=== PATIENT | female | born 1965 | race African-American/Black ===

== ENCOUNTER 2019-05-14 09:24 | Emergency (ER) | payer MEDICARE, MEDICAID, SELFPAY ==
--- NOTE | ~2019-05-14 | XR_ITS ---
XR chest 2V DATE: 05/14/2019 09:54 INDICATION: Productive cough for one week TECHNIQUE: PA and lateral views COMPARISON: 12/07/2008 two-view chest FINDINGS: Status post mid and lower anterior cervical spine surgical fusion. Normal heart size. No hilar or mediastinal enlargement. No pulmonary infiltrate or consolidation, pleural effusion or pulmonary vascular congestion or pneumo thorax. Surgical clips, medial left upper quadrant of abdomen. Included skeletal structures are unremarkable, other than mild degenerative spurring of the thoracic spine. IMPRESSION: No active cardiopulmonary disease Status post surgical spinal surgical fusion Postoperative change of the left upper quadrant of the abdomen Reviewed, dictated and finalized at location B. R WOOD CUTTER
[2019-05-14 09:43] VITALS: BP 145/79; PULSE 84; RESP 22; TEMP 36.7; O2SAT 100
--- NOTE | 2019-05-14 10:06 | ED.URI ---
HPI - URI/Sore Throat General Chief Complaint: Upper Respiratory Infection Stated Complaint: Productive Cough Time Seen by Provider: 05/14/19 09:40 Source: patient Mode of arrival: ambulatory Limitations: no limitations History of Present Illness HPI Narrative: Patient presents with chief complaint of 3 days of cough, congestion. Patient states she has had slightly decreased appetite, but she has been able to eat and drink. Patient states she did not receive a flu shot this year. Patient states that her cough has been productive of light yellow and clear phlegm. Patient denies fever, nausea, vomiting, diarrhea or any other symptoms. Patient states that she does smoke cigarettes but she has been trying to stop. Patient denies chest pain or dyspnea. Related Data Allergies Allergy/AdvReac Type Severity Reaction Status Date / Time NSAIDS (Non-Steroidal AdvReac Other Verified 05/14/19 09:45 Anti-Inflamma Review of Systems Review of Systems: Narrative: CONSTITUTIONAL: Denies fever, chills, or sweats. EYES: Denies visual changes, redness, or discharge. ENT: Reports rhinorrhea, congestion, denies sore throat, or otalgia. CARDIOVASCULAR: Denies chest pain, palpitations, or edema. RESPIRATORY: Reports cough denies dyspnea. GASTROINTESTINAL: Denies abdominal pain, nausea, vomiting, or diarrhea. GENITOURINARY: Denies dysuria or hematuria. SKIN: Denies rash or itching. MUSCULOSKELETAL: Denies back pain, joint pain, or myalgia. NEUROLOGIC: Denies headache, numbness, dizziness, or weakness. PSYCHIATRIC: Denies anxiety or depression. Exam Narrative: Exam Narrative: GENERAL: Well-appearing, well-nourished, and in no acute distress. HEAD: Normocephalic, atraumatic. EYES: PERRLA and EOMI. ENT: Nares clear, no rhinorrhea or epistaxis. Mucous membranes moist. Oropharynx without tonsillar hypertrophy exudate or other lesions. Bilateral TMs pearly rdz nonbulging. NECK: Supple. No adenopathy or masses. No carotid bruits or JVD CHEST: Clear to auscultation. No respiratory distress. No wheezes rales or rhonchi. No tachypnea or dyspnea HEART: Regular rate and rhythm. No murmur heard. Normal peripheral pulses. EXTREMITIES: Normal range of motion. No edema. SKIN: Warm, dry, no rash. NEURO: No focal deficits. Alert and oriented x3. PSYCH: Normal mood and affect. Course Vital Signs Vital signs: Vital Signs Temperature 98.1 F 05/14/19 09:43 Pulse Rate 84 05/14/19 09:43 Respiratory Rate 22 H 05/14/19 09:43 Blood Pressure 145/79 H 05/14/19 09:43 Pulse Oximetry 100 05/14/19 09:43 Temperature 98.1 F 05/14/19 09:43 Pulse Rate 68 05/14/19 11:32 Respiratory Rate 18 05/14/19 11:32 Blood Pressure 134/79 05/14/19 11:32 Pulse Oximetry 98 05/14/19 11:32 MDM - URI/Sore Throat MDM Narrative Medical decision making narrative: Discussed with patient provider in 3 minutes but less than 10 minutes smoking cessation. Patient does not have pneumonia seen her chest x-ray but due to her smoking it places her at a greater risk. Patient will be treated for bronchitis with azithromycin, prednisone, pro-air inhaler. Patient instructed to follow-up with her primary care provider for reevaluation within 1 week. Patient instructed to return to emergency department should she develop any worsening or emergent symptoms. Patient verbalized understanding agreement plan denies any other questions or concerns. Differential Diagnosis Differential diagnosis: Likely upper respiratory infection, otitis media, sinusitis, viral infection, bronchitis, influenza, pharyngitis and other (Pneumonia) Lab Data Labs: Influenza A Screen Negative Reference Range: Negative Influenza B Screen Negative Reference Range: Negative Imaging Data Radiologist's impression: ITS Impressions Chest X-Ray 05/14/19 09:57 IMPRESSION: No active cardiopulmonary disease Status post surgical spinal surgical fusi
[2019-05-14 11:32] VITALS: BP 134/79; PULSE 68; RESP 18; O2SAT 98
== END 2019-05-14 11:32 | disposition home or self-care (01) ==
PROVIDERS: Emergency Provider Emergency Medicine
DX: J40 Bronchitis, not specified as acute or chronic (principal); Z98.1 Arthrodesis status; F17.200 Nicotine dependence, unspecified, uncomplicated
CPT/HCPCS: 71046; 87804; 99283

== ENCOUNTER 2019-05-26 16:24 | Emergency (ER) | payer MEDICARE, SELFPAY ==
[2019-05-26 16:42] VITALS: BP 129/78; PULSE 80; RESP 16; TEMP 36.1; O2SAT 98
--- NOTE | 2019-05-26 17:00 | ED.EYEPROB ---
HPI - Eye Problem General Chief complaint: Eye Problems Stated complaint: R/Eye Problems Time Seen by Provider: 05/26/19 17:00 Source: patient and RN notes reviewed Mode of arrival: ambulatory Limitations: no limitations History of Present Illness HPI Narrative: 53-year-old female presents with concern for possible foreign body in her right eye. Reports last night she felt like she got something in her eye and was rubbing it and it caused pain. Reports it feels like a ball is rolling around in her eyeball. She reports she used an herbal eyedrop that offered some pain relief yesterday. She denies vision change, drainage from the eye. Reports she was recently diagnosed with bronchitis so has been coughing and having nasal congestion. MD chief complaint: eye pain Related Data Home Medications Medication Instructions Recorded Confirmed clonazepam 05/26/19 lamotrigine 05/26/19 lurasidone [Latuda] mg 05/26/19 Allergies Allergy/AdvReac Type Severity Reaction Status Date / Time NSAIDS (Non-Steroidal AdvReac Other Verified 05/14/19 09:45 Anti-Inflamma Review of Systems Review of Systems: Narrative: CONSTITUTIONAL: Denies malaise, chills, sweats, or fever. EYES: Denies visual changes or discharge. Reports irritation, itching, pain to the right eye ENT: Reports rhinorrhea, congestion. Denies sinus pain, otalgia or sore throat. CARDIOVASCULAR: Denies chest pain, palpitations, or edema. RESPIRATORY: Reports cough. Denies dyspnea. SKIN: Denies rash or itching. MUSCULOSKELETAL: Denies myalgia. NEUROLOGIC: Denies headache. All systems reviewed & are unremarkable except as noted in HPI and below PMFSH Comments At time of signature, agree with nursing past medical, surgical, social and family history. There is no relevant family history pertinent to the presenting complaint Exam Narrative: Exam Narrative: GENERAL: Well-appearing, well-nourished, and in no acute distress. HEAD: Normocephalic, atraumatic. EYES: PERRLA, conjunctivae clear, and EOMI. No nystagmus. No foreign body, corneal abrasion noted upon Sadler lamp exam. Right conjunctive mildly injected, sclera not injected ENT: Mucous membranes moist. NECK: Supple. CHEST: No respiratory distress. Speaks in full sentences. HEART: Regular rate and rhythm. SKIN: Warm, dry, no rash. NEURO: Alert and oriented x3. PSYCH: Normal mood and affect Course Course Emergency Course: Patient is aware of diagnosis, understands and agrees to treatment plan. Anticipatory guidance given. Patient agrees to follow-up as directed and is aware of reasons to seek care at the emergency department. Portions of this record may have been created with voice recognition software Vital Signs Vital signs: Vital Signs Temperature 96.9 F L 05/26/19 16:42 Pulse Rate 80 05/26/19 16:42 Respiratory Rate 16 05/26/19 16:42 Blood Pressure 129/78 05/26/19 16:42 Pulse Oximetry 98 05/26/19 16:42 Temperature 96.9 F L 05/26/19 16:42 Pulse Rate 80 05/26/19 16:42 Respiratory Rate 16 05/26/19 16:42 Blood Pressure 129/78 05/26/19 16:42 Pulse Oximetry 98 05/26/19 16:42 Reviewed. Procedures Other Procedure Procedure 1: Other Procedure: Tetracaine 1 gtt instilled in light eye, fluorescein stain applied. No corneal abrasion noted upon sadler lamp exam. Eye washed with NS 100 ml. No foreign bodies or Diann sign noted. Pinpoint corneal irregularity/papule noted at approximately 6:00 in relation to the pupil. MDM - Eye Problem MDM Narrative Medical decision making narrative: Consideration of the following conditions may be warranted for the presenting problem, they are not final diagnoses: Bacterial conjunctivitis, allergic conjunctivitis, viral conjunctivitis, foreign body, blepharitis, chalazion, hordeolum, corneal abrasion. Exam findings show no acute concerns or changes; patient is non-toxic appearing and is in no distress. Patient is appropriate fo
--- NOTE | 2019-05-26 17:21 | PC.NURSE ---
eye kit set up done 1705, aware of need for further eluation by medical specialist.
== END 2019-05-26 17:26 | disposition home or self-care (01) ==
PROVIDERS: Emergency Provider Nurse Practitioner; PCP Family Medicine
DX: H57.89 Other specified disorders of eye and adnexa (principal); F31.9 Bipolar disorder, unspecified; Z98.84 Bariatric surgery status
CPT/HCPCS: 99213; A9270; G0463

== ENCOUNTER 2019-06-08 19:54 | Emergency (ER) | payer MEDICARE, SELFPAY ==
[2019-06-08 19:50] VITALS: BP 139/65; PULSE 70; RESP 20; TEMP 36.7; O2SAT 100
--- NOTE | 2019-06-08 20:10 | ECG_ITS ---
Measurements Intervals [place] Rate: 77 P: 53 MN: 162 QRS: 14 QRSD: 104 T: 48 QT: 416 QTc: 471 Interpretive Statements SINUS RHYTHM VENTRICULAR PREMATURE COMPLEXES MINIMAL Q WAVES- INFERIOR LEADS BORDERLINE ST-T WAVE ABNORMALITY- DIFFUSE LEADS BORDERLINE ECG Electronically Signed On 06-09-2019 6:57:07 MANAGER HOSPICE by Solitario Rivera D.O.
--- NOTE | 2019-06-08 20:14 | ED.GENADULT ---
HPI - General Adult General Chief complaint: Weakness Stated complaint: weakness Time Seen by Provider: 06/08/19 20:03 Source: patient Mode of arrival: EMS Limitations: no limitations History of Present Illness HPI narrative: A 53 y/o female pt presents to the ED, via EMS from [facility], with c/o near syncopal episode that occurred prior to calling EMS. Pt states that she was standing up at [facility] when she began feeling lightheaded, weak, having sweats, and had to sit down on a chair a bystander placed under her. She notes tingling in her feet, and a burning sensation in her nose following the episode. Pt notes having N/V/D that began today, but denies CP, chest pressure, or SOB. 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 complaint: near syncopal episode Onset (ago): minute(s) Radiation: non-radiation Pain Consistency: now resolved (no longer lightheaded) Relieving factors: other (sitting down) Associated symptoms: diaphoresis, nausea/vomiting, weakness and other (diarrhea, near syncopal episode, lightheaded) Related Data Home Medications Medication Instructions Recorded Confirmed clonazepam 05/26/19 lamotrigine 05/26/19 lurasidone [Latuda] mg 05/26/19 Allergies Allergy/AdvReac Type Severity Reaction Status Date / Time NSAIDS (Non-Steroidal AdvReac Other Verified 05/14/19 09:45 Anti-Inflamma Review of Systems Review of Systems: All systems reviewed & are unremarkable except as noted in HPI and below ENT: Reports other (burning sensation in nose) Cardiovascular: Cardiovascular: Denies chest pain, Reports diaphoresis, Reports lightheadedness and Denies other (chest pressure) Respiratory: Respiratory: Denies dyspnea Gastrointestinal: Gastrointestinal: Reports diarrhea, Reports nausea and Reports vomiting Musculoskeletal: Musculoskeletal: Reports tingling (bilateral feet) Neurologic: Reports weakness and Reports other (near syncopal episode) [facility] Past Medical History Medical History (Updated 06/08/19 @ 22:58 by Ricardo Dinero MD) Anxiety Bipolar disorder (manic depression) Depression Diabetes mellitus History of gastroesophageal reflux (GERD) History of TIA (transient ischemic attack) Myalgia Surgical History Surgical History (Updated 06/08/19 @ 22:44 by Isaias Toscano [facility]) H/O inguinal hernia repair History of section History of cholecystectomy History of gastric bypass History of hysterectomy Social History Social History (Updated 06/08/19 @ 22:45 by Isaias Toscano, [facility]) Occupation/Education: occupation 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 HEAD: Normocephalic, atraumatic. EYES: PERRLA and EOMI. ENT: Mucous membranes moist. CHEST: Clear to auscultation. No respiratory distress. HEART: Regular rate and rhythm with occassional dropped. Normal peripheral pulses. ABDOMEN: Soft, nontender, nondistended. EXTREMITIES: Normal range of motion. No edema. SKIN: Warm, dry, no rash. NEURO: No focal deficits. Alert and oriented x3. Course Course Emergency Course: Patient informed of results. Feeling well. Normotensive. Has some burning sensation to her nose that occurred when the muck miner rapidly infused a saline flush. Feel patient orthostatic near syncope due to the fact that she had to have a large liquid BM. Vital Signs Vital signs: Vital Signs Temperature 98.1 F 06/08/19 19:50 Pulse Rate 70 06/08/19 19:50 Respiratory Rate 20 06/08/19 19:50 Blood Pressure 139/65 06/08/19 19:50 Pulse Oximetry 100 06/08/19 19:50 Temperature 98.1 F 06/08/19 19:50 Pulse Rate 70 06/08/19 23:08 Respiratory Rate 20 06/08/19 23:08 Blood Pressure 140/72 06/08/19 23:08 Pulse Oximetry 100 06/08/19 23:08 Medical Decision Making Vital Signs Vital Signs: Vital Signs Temperature
[2019-06-08 20:23] VITALS: BP 126/72; BP 139/65; PULSE 70; PULSE 76
[2019-06-08 20:24] VITALS: BP 138/102; PULSE 83
[2019-06-08] MEDS: SODIUM CHLORIDE 0.9% IV 1,000 ML 999 ML IV CONT (20:37)
[2019-06-08 20:54] VITALS: BP 123/82; PULSE 74; RESP 20; O2SAT 98
[2019-06-08 20:54] LABS: Basophils Percent Auto 0.4 % (0.2-1.2); Eosinophils Absolute Auto 0.1 K/mm3 (0-0.3); Eosinophils Percent Auto 0.9 % (0-4.4); Hematocrit 37.7 % (37.0-47.0); Hemoglobin 11.8 g/dL (12.0-15.0); Immature Granulocyte Absolute 0.01 K/mm3 (0.00-0.031); Immature Granulocyte Percent A 0.1 % (0-0.5); Lymphocytes Absolute Auto 2.01 K/mm3 (0.9-3.2); Lymphocytes Percent Auto 26.9 % (18.3-44.2); Mean Corpuscular HGB Conc 31.3 g/dl (32-36); Mean Corpuscular Hemoglobin 28.2 pg (26-34); Mean Platelet Volume 11.5 fl (7.4-10.4); Monocytes Absolute Auto 0.6 K/mm3 (0.1-0.6); Monocytes Percent Auto 7.5 % (2.6-8.5); Neutrophils Absolute Auto 4.8 K/mm3 (1.3-6.7); Neutrophils Percent Auto 64.2 % (45.5-73.1); Platelet Count Result 228 k/mm3 (150-375); Red Blood Count 4.19 M/mm3 (4.2-5.4); Red Cell Distribution Width 14.7 % (11.5-14.5); White Blood Count 7.5 K/mm3 (4.5-10.0)
[2019-06-08 21:07] LABS: Alanine Aminotransferase 16 U/L (4-35); Albumin Level 3.9 g/dL (3.5-5.1); Alkaline Phosphatase 129 U/L (38-126); Aspartate Amino Transferase 20 U/L (14-36); Bilirubin,Total 0.3 mg/dL (0.2-1.3); Blood Urea Nitrogen 8 mg/dL (7-17); Calcium 8.7 mg/dL (8.4-10.2); Carbon Dioxide 23 mmol/L (22-30); Chloride 103 mmol/L (98-107); Estimated Glomerular Filt Rate > 60; Glucose 138 mg/dL (65-105); Potassium 3.6 mmol/L (3.4-5.0); Sodium 139 mmol/L (137-145)
--- NOTE | 2019-06-08 21:11 | PC.NURSE ---
Patient called this nurse into the room and stated she was having burning in her nose and requested to have the fluids stopped. This nurse paused the fluids and notified the EDP Dr. Dinero. AIME to give patient PO fluids to see if patient will tolerate and is ok to pause the fluids at this time.
[2019-06-08] MEDS: ACETAMINOPHEN 325 MG TABLET 650 MG PO (22:37)
[2019-06-08 23:08] VITALS: BP 140/72; PULSE 70; RESP 20; O2SAT 100
== END 2019-06-08 23:06 | disposition home or self-care (01) ==
PROVIDERS: Emergency Provider Emergency Medicine
DX: R55 Syncope and collapse (principal); F41.9 Anxiety disorder, unspecified; F31.9 Bipolar disorder, unspecified; E11.9 Type 2 diabetes mellitus without complications; K21.9 Gastro-esophageal reflux disease without esophagitis; Z86.73 Personal history of transient ischemic attack (TIA), and cerebral infarction without residual deficits; Z98.84 Bariatric surgery status; I49.3 Ventricular premature depolarization; R94.31 Abnormal electrocardiogram [ECG] [EKG]
CPT/HCPCS: 36415; 80053; 85025; 93005; 96360; 99283; A9270; J7030

== ENCOUNTER 2021-02-16 00:45 | Emergency (ER) | payer MEDICARE, SELFPAY ==
[2021-02-16] VITALS (9 sets, daily range): BP systolic 82–124; BP diastolic 49–86; PULSE 53–78; RESP 12–18; TEMP 36.9; O2SAT 98–100
--- NOTE | ~2021-02-16 | XR_ITS ---
EXAMINATION: XR elbow RT min 3V DATE: 02/16/2021 02:19 INDICATION: Right elbow pain. Fall. TECHNIQUE: 4 views of right elbow were obtained. COMPARISON: Right elbow radiographs 07/17/2006 FINDINGS: Bone alignment is normal. No fracture. There is mild elbow joint osteoarthritis characteriz ed by a tiny osteophyte of the olecranon. There is no elbow joint effusion. IMPRESSION: 1. No fracture. Reviewed, dictated and finalized at location A. CAL LENS MANUFACTURING TECH IMPRESSION: 1. No fracture.
--- NOTE | ~2021-02-16 | CT_ITS ---
EXAMINATION: CT abdomen pelvis w con DATE: 02/16/2021 04:23 INDICATION: Abdominal pain after surgery. TECHNIQUE: Computed tomography (CT) of the abdomen and pelvis was performed with 100 mL Omnipaque 350 intravenous contrast. Automated exposure control and iterative reconstruction technique were employe d. The dose-length product was 1060.07 mGy-cm. COMPARISON: None. FINDINGS: The visualized portions of the lung bases demonstrate mild atelectasis and mild bronchiecta sis. No pleural effusion. The heart size is normal. No pericardial effusion. The liver is normal. The re are changes of cholecystectomy. There are surgical changes of the stomach. The spleen, pancreas, a nd adrenal glands are normal. There are cysts in the kidneys measuring up to 1.6 cm on the left. Ther e is diverticulosis of the colon without evidence of diverticulitis. There is a large volume of stool in the colon. The appendix is normal. There are no pathologically enlarged lymph nodes. There is no free intraperitoneal fluid. There are infraumbilical skin katia wrapping around to the flanks. Ther e are subcutaneous surgical drains bilaterally. In the subcutaneous fat in the left abdomen along the surgical drain, there is a 15.9 x 3.3 x 8.0 cm hematoma. Adjacent to the right-sided drain, there is a 3.2 x 0.9 cm hematoma. There are changes of anterior and posterior fusion procedures at L4-L5. The re is severe thoracic spondylosis and mild lumbar spondylosis. IMPRESSION: 1. Hematomas in the subcutaneous fat in the abdominal wall, left worse than right, with surgical drai ns. Reviewed, dictated and finalized at location A. S REVIEW CLERK IMPRESSION: 1. Hematomas in the subcutaneous fat in the abdominal wall, left worse than rig ht, with surgical drains.
--- NOTE | 2021-02-16 00:59 | ECG_ITS ---
Measurements Intervals [place] Rate: 65 P: 46 UT: 174 QRS: 9 QRSD: 104 T: 124 QT: 413 QTc: 431 Interpretive Statements SINUS RHYTHM BORDERLINE ST-T WAVE ABNORMALITY- ANT/HIGH LAT LEADS BORDERLINE ECG Electronically Signed On 02-16-2021 5:35:21 SPECIFICATION WRITER by Solitario Rivera D.O.
--- NOTE | 2021-02-16 01:00 | PC.NURSE ---
left drain 50cc right drain 120cc out.
[2021-02-16 01:34] LABS: Basophils Percent Auto 0.1 % (0.2-1.2); Hematocrit 26.9 % (37.0-47.0); Hemoglobin 8.4 g/dL (12.0-15.0); Immature Granulocyte Absolute 0.02 K/mm3 (0.00-0.031); Immature Granulocyte Percent A 0.2 % (0-0.5); Lymphocytes Absolute Auto 0.73 K/mm3 (0.9-3.2); Lymphocytes Percent Auto 7.2 % (18.3-44.2); Mean Corpuscular HGB Conc 31.2 g/dl (32-36); Mean Corpuscular Hemoglobin 27.5 pg (26-34); Mean Corpuscular Volume 87.9 fl (80-100); Mean Platelet Volume 11.2 fl (7.4-10.4); Monocytes Absolute Auto 0.7 K/mm3 (0.1-0.6); Monocytes Percent Auto 6.9 % (2.6-8.5); Neutrophils Absolute Auto 8.6 K/mm3 (1.3-6.7); Neutrophils Percent Auto 85.6 % (45.5-73.1); Platelet Count Result 184 k/mm3 (150-375); Red Blood Count 3.06 M/mm3 (4.2-5.4); Red Cell Distribution Width 16.6 % (11.5-14.5); White Blood Count 10.1 K/mm3 (4.5-10.0)
[2021-02-16 01:46] LABS: Anion Gap 8 mmol/L (8-16); Blood Urea Nitrogen 17 mg/dL (7-17); Calcium 8.8 mg/dL (8.4-10.2); Carbon Dioxide 24 mmol/L (22-30); Chloride 104 mmol/L (98-107); Estimated CRCL calculation 55 ml/min; Estimated Glomerular Filt Rate > 60; Glucose 197 mg/dL (65-110); Potassium 4.7 mmol/L (3.4-5.0); Sodium 136 mmol/L (137-145)
[2021-02-16 01:54] LABS: INR 1.1; Prothrombin Time 14.3 Seconds (11.1-14.7)
[2021-02-16 01:55] LABS: Alanine Aminotransferase 58 U/L (4-35); Albumin Level 3.4 g/dL (3.5-5.1); Alkaline Phosphatase 119 U/L (38-126); Aspartate Amino Transferase 100 U/L (14-36); Bilirubin,Total 0.2 mg/dL (0.2-1.3); Magnesium 1.6 mg/dL (1.6-2.3)
[2021-02-16 01:59] LABS: Partial Thromboplastin Time < 20.0 SECONDS (22.3-36.8)
[2021-02-16 02:07] LABS: Troponin I < 0.012 ng/mL (0.000-0.034)
[2021-02-16] MEDS: SODIUM CHLORIDE 0.9% IV 1,000 ML 999 ML IV CONT (02:07)
[2021-02-16 02:19] LABS: Lactic Acid Reflex 3.9 mmol/L (0.7-2.1)
[2021-02-16] MEDS: ONDANSETRON INJ 4 MG/2 ML VIAL IV PUSH (02:28)
[2021-02-16] MEDS: MORPHINE SULFATE (*CRX) 4 MG/ML INJ IV PUSH ×3 (02:28→07:58)
--- NOTE | 2021-02-16 03:26 | ED.GENADULT ---
HPI - General Adult General Chief complaint: Syncope Stated complaint: fall, hypotensive Time Seen by Provider: 02/16/21 01:11 History of Present Illness HPI narrative: Patient 55-year-old female presents the emergency department with chief complaint of syncopal episode. Patient had a procedure at [place] today where they removed a portion of excess abdominal tissue. The patient states she has multiple drains present in her abdominal wall and they have been draining a fair amount of blood. The patient states that she started getting lightheaded had an episode where she briefly passed out at home. The patient states she fell to the ground did not strike her head but reports that she has worsening pain in her abdominal wall. Related Data Home Medications Medication Instructions Recorded Confirmed clonazepam 05/26/19 lamotrigine 05/26/19 lurasidone [Latuda] mg 05/26/19 Allergies Allergy/AdvReac Type Severity Reaction Status Date / Time NSAIDS (Non-Steroidal AdvReac Other Verified 05/14/19 09:45 Anti-Inflamma Review of Systems Review of Systems: A 10 system review of systems was completed on the patient and is negative except for what is stated in the HPI. Nursing and ancillary documentation was reviewed. 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 HEAD: Normocephalic, atraumatic. EYES: PERRLA and EOMI. ENT: Nares clear, no rhinorrhea or epistaxis. Mucous membranes moist. NECK: Supple. CHEST: Clear to auscultation. No respiratory distress. HEART: Regular rate and rhythm. No murmur heard. Normal peripheral pulses. ABDOMEN: Soft, diffuse tenderness to palpation, there is a transverse incision on the abdominal wall present there is a dressing that has some blood present on it the wounds are intact no evidence of dehiscence. There are drains present, nondistended, normal active bowel sounds. EXTREMITIES: Normal range of motion. No edema. SKIN: Warm, dry, no rash. NEURO: No focal deficits. Alert and oriented x3. PSYCH: Normal mood and affect. Course Course Emergency Course: Spoke with the patient's surgeon who accepted the patient in transfer currently we are waiting on a bed at one of the facilities in [place] that her surgeon has privileges at Vital Signs Vital signs: Vital Signs Pulse Rate 68 02/16/21 00:51 Respiratory Rate 18 02/16/21 00:51 Blood Pressure 108/66 02/16/21 00:51 Pulse Oximetry 100 02/16/21 00:51 Pulse Rate 78 02/16/21 04:28 Respiratory Rate 14 02/16/21 04:28 Blood Pressure 124/86 02/16/21 04:28 Pulse Oximetry 100 02/16/21 04:28 Medical Decision Making Vital Signs Vital Signs: Vital Signs Pulse Rate 68 02/16/21 00:51 Respiratory Rate 18 02/16/21 00:51 Blood Pressure 108/66 02/16/21 00:51 Pulse Oximetry 100 02/16/21 00:51 Pulse Rate 78 02/16/21 04:28 Respiratory Rate 14 02/16/21 04:28 Blood Pressure 124/86 02/16/21 04:28 Pulse Oximetry 100 02/16/21 04:28 Lab Data Result diagrams: 02/16/21 01:28 02/16/21 01:28 Labs: Lab Results 02/16/21 02/16/21 02/16/21 Range/Units 01:28 01:28 01:39 WBC 10.1 H (4.5-10.0) K/mm3 RBC 3.06 L (4.2-5.4) M/mm3 Hgb 8.4 L D (12.
[2021-02-16 04:42] LABS: Reflex Lactic Acid Yes or No Add Lactic
--- NOTE | 2021-02-16 05:00 | PC.NURSE ---
Abd dressing changed upon request of pt. left drain 30cc right drain 40cc out.
--- NOTE | 2021-02-16 05:55 | PC.NURSE ---
Report given to Brooke at [facility] to be set up.
[2021-02-16 06:15] LABS: Lactic Acid 2.6 mmol/L (0.7-2.1)
--- NOTE | 2021-02-16 06:19 | PC.NURSE ---
called [facility] to request transport. Will require electrician supervisor approval due to the long distance. They will call back called [facility]. They do not have a truck available today due to day.
--- NOTE | 2021-02-16 06:34 | PC.NURSE ---
Pt wanting to go to [facility] in [place]. made aware he will contact them.
[2021-02-16 07:17] LABS: EDCOVIDSCREEN Negative (Negative)
--- NOTE | 2021-02-16 07:45 | PC.NURSE ---
Pt states she is doing well, talkative states she is doing better, Sanna RN has paper work completed and report called to [facility] for transfer, BP 113/77,O2 100%,HR76 RR18
== END 2021-02-16 08:09 | disposition short-term general hospital (02) ==
PROVIDERS: Emergency Provider Emergency Medicine
DX: R55 Syncope and collapse (principal); D64.9 Anemia, unspecified; F41.9 Anxiety disorder, unspecified; F31.9 Bipolar disorder, unspecified; E11.9 Type 2 diabetes mellitus without complications; K21.9 Gastro-esophageal reflux disease without esophagitis; Z86.73 Personal history of transient ischemic attack (TIA), and cerebral infarction without residual deficits
CPT/HCPCS: 36415; 73080; 74177; 80048; 80076; 83605; 83735; 84484; 85025; 85610; 85730; 87426; 93005; 96361; 96374; 96375; 96376; 99285; C9803; J2270; J2405; J7030; Q9967

== ENCOUNTER 2022-12-16 14:51 | Emergency (ER) | payer MEDICARE, SELFPAY ==
--- NOTE | ~2022-12-16 | XR_ITS ---
EXAM: XR finger 3rd LT min 2V DATE: 12/16/2022 15:14 HISTORY: crush injury; shut car door on Lt 3rd finger, dist phalanx . COMPARISON: None available. FINDINGS: Normal mineralization. Very subtle cortical irregularity along the distal and anteromedial aspect of the left third distal phalanx. No dislocation. No lytic or blastic lesion. Mild scattered degenerative changes. No erosion or periosteal change. Soft tissues within normal limits. IMPRESSION: Very subtle cortical fracture along the distal and anteromedial aspect of the left third distal phalanx. Reviewed, dictated and finalized at location K. IMPRESSION: Very subtle cortical fracture along the distal and anteromedial asp ect of the left third distal phalanx.
[2022-12-16 14:54] VITALS: BP 141/76; PULSE 99; RESP 18; TEMP 36.6; O2SAT 97
--- NOTE | 2022-12-16 15:57 | ED.UPPEXIN ---
HPI - Extremity Injury (Upper) General Chief Complaint: Extremity Injury, Upper Stated Complaint: left hand injury Time Seen by Provider: 12/16/22 15:10 History of Present Illness HPI narrative: This is a 57-year-old female, with no symptom past medical history, presents emergency department complaining of left third finger pain after getting it caught in a door. The patient states she was closing the door when it slammed on the finger. She initially rated her pain 7/10 that has since improved. She has no other injuries or complaints at this time. Related Data Home Medications Medication Instructions Recorded Confirmed clonazepam 1 mg tablet 05/26/19 lamotrigine 100 mg tablet 05/26/19 lurasidone 80 mg tablet (Latuda) mg 05/26/19 Allergies Allergy/AdvReac Type Severity Reaction Status Date / Time NSAIDS (Non-Steroidal AdvReac Other Verified 05/14/19 09:45 Anti-Inflamma Review of Systems Review of Systems: CONSTITUTIONAL: Denies fever, chills, or sweats. CARDIOVASCULAR: Denies chest pain, palpitations, or edema. RESPIRATORY: Denies cough or dyspnea. SKIN: Denies rash or itching. MUSCULOSKELETAL: Left third finger pain denies back pain, or myalgia. NEUROLOGIC: Denies headache, numbness, dizziness, or weakness. PSYCHIATRIC: Denies anxiety or depression. 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 HEAD: Normocephalic, atraumatic. EYES: PERRLA and EOMI. CHEST: Clear to auscultation. No respiratory distress. No wheezes rales or rhonchi HEART: Regular rate and rhythm. No murmur heard. Normal peripheral pulses. EXTREMITIES: There is a small amount of ecchymosis noted to the palmar aspect of the distal left third finger. There is a 1 and half centimeter crack in the medial aspect of the left third nail with out underlying laceration of the nailbed. Range of motion of the finger is intact. Otherwise normal range of motion of all extremities. No edema. SKIN: Warm, dry, no rash. NEURO: Alert and oriented x3. Moving all 4 limbs purposefully. Course Course Emergency Course: 15:59 - X-ray shows a nondisplaced fracture at the distal aspect of the left third finger. The patient's tetanus vaccination was updated and the finger was placed in a splint. Will discharge with primary care follow-up. Discussed return and emergency precautions including signs/symptoms of neurovascular compromise and infection. The patient voiced understanding and is comfortable with the plan. All questions answered to her satisfaction. Vital Signs Vital signs: Vital Signs Temperature 98 F 12/16/22 14:54 Pulse Rate 99 12/16/22 14:54 Respiratory Rate 18 12/16/22 14:54 Blood Pressure 141/76 H 12/16/22 14:54 Pulse Oximetry 97 12/16/22 14:54 Oxygen Delivery Room Air 12/16/22 14:54 Temperature 98 F 12/16/22 14:54 Pulse Rate 99 12/16/22 14:54 Respiratory Rate 18 12/16/22 14:54 Blood Pressure 141/76 H 12/16/22 14:54 Pulse Oximetry 97 12/16/22 14:54 Oxygen Delivery Room Air 12/16/22 14:54 MDM - Extremity Injury (Upper) MDM Narrative Medical decision making narrative: Plan: Imaging, pain control, tetanus vaccination, reassess Differential Diagnosis Differential diagn
[2022-12-16] MEDS: TETANUS,DIPHTHERIA,AC PERTUSSIS ADULT (0.5 ML) BOOSTRIX IM (16:11)
== END 2022-12-16 16:31 | disposition home or self-care (01) ==
PROVIDERS: Emergency Provider Preventive Medicine Aerospace Medicine
DX: S62.635A Displaced fracture of distal phalanx of left ring finger, initial encounter for closed fracture (principal); E11.9 Type 2 diabetes mellitus without complications; Z86.73 Personal history of transient ischemic attack (TIA), and cerebral infarction without residual deficits; Z23 Encounter for immunization; W23.0XXA Caught, crushed, jammed, or pinched between moving objects, initial encounter
CPT/HCPCS: 29130; 73140; 90471; 90715; 99284

== ENCOUNTER 2023-08-14 14:53 | Outpatient (CLI) | payer MEDICARE, SELFPAY ==
--- NOTE | ~2023-08-14 | US_ITS ---
Limited Abdominal Sonogram: Real-time sonographic imaging of the right upper quadrant was performed. Clinical History: Abnormal liver enzymes Findings: The liver appears normal with no evidence of mass lesion or bile duct dilatation. Main por noman vein demonstrates normal direction of flow. The gallbladder is absent, compatible prior cholecyst ectomy. The common bile duct measures 5 mm. The visualized pancreas, aorta, and IVC are unremarkable . Right kidney measures 10.5 cm in length, without hydronephrosis. Impression: Status post cholecystectomy, otherwise unremarkable exam. Reviewed, dictated and finalized at location M. Impression: Status post cholecystectomy, otherwise unremarkable exam.
== END 2023-08-14 14:54 ==
DX: R74.8 Abnormal levels of other serum enzymes (principal); Z90.49 Acquired absence of other specified parts of digestive tract
CPT/HCPCS: 76705